=== PATIENT | female | born 1940 | race Asian ===

== ENCOUNTER 2020-12-21 20:50 | Inpatient (IN) | payer MEDICARE, MEDICAID ==
[~2020-12-21] VITALS: Ht 149.9 cm; Wt 62.3 kg
--- NOTE | 2020-12-21 21:05 | NUR ---
SPOKE TO SON CLAIR AND FAMILY OVER PHONE. [phone] SPOKE TO SON ABOUT PT CLINICAL SCREEN AND TRIAGE NOTE. PT FAMILY VERY POOR HISTORIANS OF PT MEDICAL AND SURGICAL HX. WAS GIVEN POLST AND MED LIST UPON ARRIVAL.
--- NOTE | 2020-12-21 21:11 | NUR ---
[place]ONZOSidney FROM HOME AT [address] PT CALLED EMS DUE TO FEEDING DISLODGEMENT AT 1700 TODAY. PT APPEARS IN NO DISTRESS. ATTACHED TO CARD/SP02/BP MONITORS. VSS PT FEEDING TUBE SURROUNDING SKIN LOOKS INTACT, NO SIGNS OF INFECTION. PT IS ON VENTILATOR. SPOKE TO FAMILY OVER PHONE. POOR HISTORIANS OF PT MEDICAL HX. 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 PT DOES NOT SPEAK. PT ON [facility]. BED IN LOW POSITION. RAILS ENGAGED CALL LIGHT WITHIN REACH.
--- NOTE | 2020-12-21 21:16 | NUR ---
PT STATES NOW FEEDING TUBE CAME OUT AT 1950 TONIGHT
[2020-12-21] MEDS ORDERED: SODIUM CHLORIDE FLUSH 10ML SYR IVF ONE (21:30)
--- NOTE | 2020-12-21 21:42 | NUR ---
SPOKE TO SON OVER PHONE ABOUT MED REC. RECEIVED MEDS WITH NO DOSAGES OR ROUTES. PUT MEDS IN WITH UNKNOWN DOASGES BUT COMPUTER SENT AND ERROR AND DELETED EVERYTHING. FAMILY SAID THEY WOULD BRING MEDS IN SO WE CAN PUT CORRECT INFORMATION INTO SYSTEM. WILL WAIT TELL FAMILY COMES TO ER.
[2020-12-21] MEDS ORDERED: VALPROATE SODIUM 250 MG in DEXTROSE 5% 100 ML IV SCH (22:00)
[2020-12-21] MEDS ORDERED: VALPROATE SODIUM 250 MG in SODIUM CHLORIDE 0.9% 100 ML IV SCH ×2 (22:00→23:55)
[2020-12-21] MEDS ORDERED: VALPROATE SODIUM IV SCH (22:00)
[2020-12-21] MEDS ORDERED: SODIUM CHLORIDE 0.9% IV SCH (22:00)
[2020-12-21 22:02] LABS: BASOPHILS % (AUTO) 0 % (0-1); EOSINOPHILS % (AUTO) 2 % (1-7); LYMPHOCYTES % (AUTO) 20 % (22-44); MEAN CORPUSCULAR HEMOGLOBIN 31.7 pg (27.0-34.8); MEAN CORPUSCULAR HGB CONC 34.2 g/dL (32.4-35.8); MEAN PLATELET VOLUME 8.4 fL (7.4-10.4); MONOCYTES % (AUTO) 13 % (2-9); NEUTROPHILS % (AUTO) 64 % (42-75); PLATELET COUNT 222 x10^3/uL (130-400); RED CELL DISTRIBUTION WIDTH 14.3 % (9.6-15.2)
[2020-12-21 22:07] LABS: ALBUMIN 2.8 g/dL (3.4-5.0); ANION GAP 5 mmol/L (5-15); CALCIUM 9.2 mg/dL (8.5-10.1); CHLORIDE 98 mmol/L (98-107)
[2020-12-21] MEDS ORDERED: ACET325T14 PO (22:49)
[2020-12-21] MEDS ORDERED: polyethylene glycol GT (22:55)
[2020-12-21] MEDS ORDERED: VALP250S4 GT (22:55)
[2020-12-21] MEDS ORDERED: LEVE750T8 PO (22:55)
[2020-12-21] MEDS ORDERED: VALP250S3 GT (22:55)
[2020-12-21] MEDS ORDERED: POTA25TA GT (22:55)
[2020-12-21] MEDS ORDERED: LEVE750T21 GT (23:00)
[2020-12-21] MEDS ORDERED: GLIP5TAB10 GT (23:00)
[2020-12-21] MEDS ORDERED: POLYETHYLENE GLYCOL 17 GM PACKET PO PRN (23:00)
[2020-12-21] MEDS ORDERED: PHOS250T3 GT (23:00)
[2020-12-21] MEDS ORDERED: ACETAMINOPHEN 325 MG TABLET PO PRN (23:00)
[2020-12-21] MEDS ORDERED: SODIUM CHLORIDE FLUSH 10ML SYR IVF PRN (23:00)
[2020-12-21] MEDS ORDERED: SODI1TAB GT (23:00)
[2020-12-21] MEDS ORDERED: RIVA10TA2 GT (23:00)
[2020-12-21] MEDS ORDERED: BISACODYL 10 MG SUPP PR PRN (23:00)
[2020-12-21] MEDS ORDERED: ATOR20TA37 GT (23:00)
[2020-12-21] MEDS ORDERED: SODIUM CHLORIDE 0.9% 1,000 ML IV ONE (23:00)
[2020-12-21] MEDS ORDERED: glycopyrrolate GT (23:03)
[2020-12-21] MEDS ORDERED: [UNRECOGNIZED DRUG - CODE] GT (23:03)
[2020-12-21] MEDS ORDERED: PIOG30TA67 GT (23:04)
--- NOTE | 2020-12-21 23:09 | NUR ---
Patient is resting comfortably in bed. Bed in lowest, rails engaged, call light on lap. Vital Signs within normal limits. WCTM.
--- NOTE | 2020-12-22 00:19 | NUR ---
GAVE REPORT TO PAOLA MANRIQUE
[2020-12-22 00:40] VITALS: BP 120/73
[2020-12-22] MEDS: INSULIN LISPRO 100 UNITS/ML, PEN SQ-INSULIN SCH ×4 (01:30→16:00)
[2020-12-22] MEDS: LEVETIRACETAM 500 MG in SODIUM CHLORIDE 0.9% 100 ML IV SCH ×2 (02:11→11:34)
[2020-12-22 02:20] VITALS: BP 120/82
[2020-12-22] MEDS ORDERED: NS + 40MEQ KCL 1,000 ML IV SCH (08:00)
[2020-12-22] MEDS ORDERED: ACETAMINOPHEN 325 MG TABLET PO PRN (08:00)
[2020-12-22 08:35] VITALS: BP 90/52
[2020-12-22 08:39] LABS: ANION GAP 7 mmol/L (5-15); CALCIUM 9.6 mg/dL (8.5-10.1); CHLORIDE 103 mmol/L (98-107); CREATININE 0.32 mg/dL (0.55-1.02)
[2020-12-22] MEDS ORDERED: LIDOCAINE 1%, 10ML ONE (09:47)
[2020-12-22] MEDS ORDERED: SODIUM CHLORIDE 0.9% IV SCH (10:00)
[2020-12-22] MEDS ORDERED: VALPROATE SODIUM IV SCH (10:00)
[2020-12-22] MEDS ORDERED: VALPROATE SODIUM 250 MG in SODIUM CHLORIDE 0.9% 100 ML IV SCH (10:00)
[2020-12-22] MEDS ORDERED: INSULIN LISPRO 100 UNITS/ML, PEN SQ-INSULIN SCH (11:00)
[2020-12-22 14:34] VITALS: BP 113/72
== END 2020-12-22 18:51 | disposition home health service (06) | DRG 393 ==
LOC: MERGE 21:24 → ED 21:24 → EDIP 23:08 → 3N 12-22 00:28
PROVIDERS: ADMIT Internal Medicine; ATTEND Internal Medicine
PROC: 0DH67UZ Insertion of Feeding Device into Stomach, Via Natural or Artificial Opening (ICD-10-PCS; principal; 2020-12-22)
DX: K94.23 Gastrostomy malfunction (principal); R53.2 Functional quadriplegia; G93.40 Encephalopathy, unspecified; J96.10 Chronic respiratory failure, unspecified whether with hypoxia or hypercapnia; E87.1 Hypo-osmolality and hyponatremia; E11.65 Type 2 diabetes mellitus with hyperglycemia; E87.6 Hypokalemia; G40.909 Epilepsy, unspecified, not intractable, without status epilepticus; E78.5 Hyperlipidemia, unspecified; Z79.899 Other long term (current) drug therapy; Z74.01 Bed confinement status; Z79.01 Long term (current) use of anticoagulants; Z86.73 Personal history of transient ischemic attack (TIA), and cerebral infarction without residual deficits; Z79.891 Long term (current) use of opiate analgesic
CPT/HCPCS: 36415; 49440; 80048; 82040; 82962; 85025; J1953; C1729; J3480; J7030